=== PATIENT | female | born 1990 | race Caucasian/White ===

== ENCOUNTER → 2016-06-13 | Outpatient (CLI) | payer OTHER ==
--- NOTE | 2016-06-13 11:14 | DX ---
Left Elbow, Three Views History: Follow up ORIF. Comparison: Left elbow May 03, 2016. Findings: There has been interval placement of two cannulated screws through a minimally displaced ra dial head fracture, with no significant residual displacement. The lucent fracture line remains visib le. No new fracture is identified. A small joint effusion is suspected. Impression: Interval ORIF of previously noted radial head fracture with near anatomic positioning.
== END ==
LOC: BMCIMAGING 08:35
PROVIDERS: ATTEND Physician Assistant
DX: S52.122A Displaced fracture of head of left radius, initial encounter for closed fracture (principal)

== ENCOUNTER → 2016-07-12 | Outpatient (CLI) | payer OTHER ==
--- NOTE | 2016-07-12 10:49 | DX ---
Left Elbow, Three Views History: Follow-up radial head fracture pinning, date of surgery 05/11/2016 Comparison: June 13, 2016 Findings: 2 transverse compression screws affix the radial head in stable anatomic alignment. The f racture line is significantly thinning consistent with healing, but does remain visible. There is no elbow joint effusion. Impression: Healing is occurring.
== END ==
LOC: BMCIMAGING 08:33
PROVIDERS: ATTEND Physician Assistant
DX: S52.122D Displaced fracture of head of left radius, subsequent encounter for closed fracture with routine healing (principal)

== ENCOUNTER → 2017-04-04 | Outpatient (CLI) | payer OTHER | LOC: FIMAGING 13:36 | PROVIDERS: ATTEND Family Medicine | DX: N92.0 Excessive and frequent menstruation with regular cycle (principal) ==